=== PATIENT | female | born 1990 | race African-American/Black ===

== ENCOUNTER 2022-11-22 00:06 | Emergency (ER) | payer OTHER, MEDICAID ==
[~2022-11-22] VITALS: Ht 165.1 cm; Wt 91.4 kg
[2022-11-22 00:27] VITALS: BP 135/92; PULSE 84; RESP 16; TEMP 98.1; O2SAT 99
[2022-11-22] MEDS ORDERED: IBUPROFEN 600MG TABLET PO ONE (00:45)
[2022-11-22] MEDS ORDERED: IBUP-2029 MT (02:05)
[2022-11-22] MEDS ORDERED: CYCL10TA21 MT (02:05)
== END 2022-11-22 02:12 | disposition home or self-care (01) ==
LOC: ER 00:26
DX: M54.50 Low back pain, unspecified (principal); V49.9XXA Car occupant (driver) (passenger) injured in unspecified traffic accident, initial encounter; Y93.89 Activity, other specified; Y92.89 Other specified places as the place of occurrence of the external cause; Y99.8 Other external cause status
CPT/HCPCS: 72100; 99283